=== PATIENT | female | born 1970 | race Hispanic/Latino ===

== ENCOUNTER 2019-08-19 15:38 | Emergency (ER) | payer SELFPAY ==
[~2019-08-19] VITALS: Ht 160 cm; Wt 68.0 kg
[2019-08-19 16:26] LABS: BASOPHILS # (AUTO) 0.1 (0.0-0.1); BASOPHILS % 0.8 % (0.0-1.0); EOSINOPHILS # (AUTO) 0.2 (0.0-0.4); EOSINOPHILS % 2.7 % (0.0-6.0); HEMATOCRIT 39.3 % (34.2-44.1); HEMOGLOBIN 12.9 g/dL (12.0-16.0); LYMPHOCYTES # (AUTO) 1.7 (1.0-3.2); LYMPHOCYTES % 26.1 % (18.0-39.1); MEAN CORPUSCULAR HEMOGLOBIN 28.5 pg (28-32); MEAN CORPUSCULAR HGB CONC 32.8 g/dL (31-35); MEAN CORPUSCULAR VOLUME 86.9 fL (81-99); MONOCYTES # (AUTO) 0.6 (0.2-0.8); MONOCYTES % 8.7 % (4.4-11.3); NEUTROPHILS % 60.6 % (38.7-80.0); PLATELET COUNT 359 x10e3/uL (140-360); RED BLOOD COUNT 4.52 x10e6/uL (3.6-5.1); RED CELL DISTRIBUTION WIDTH 12.9 % (11.7-14.4)
[2019-08-19] MEDS ORDERED: METOCLOPRAMIDE HCL 10 MG/2ML VIAL IV ONE (16:30)
[2019-08-19] MEDS ORDERED: DIPHENHYDRAMINE HCL INJ 50 MG/ML VIAL IV ONE (16:30)
[2019-08-19] MEDS ORDERED: ACETAMIN/BUTALBITAL/CAFFEINE TAB PO ONE (16:30)
--- NOTE | 2019-08-19 16:33 | Emergency Department Note ---
History of Present Illnes History of Present Illness Chief Complaint: Respiratory History of Present Illness This is a 49 year old female arrived to the ED with complaints of a headache. Patient states she is concerned that she may have an aneurysm as her mother has one. She admits to previously diagnosed with strep pharyngitis, has been treated and has been afebrile otherwise. Historian: Patient Arrival Mode: Car Onset (how long ago): week(s) Radiation: Reports non-radiation Onset quality: gradual Duration (how long): day(s) Timing of current episode: intermittent Progression: waxing and waning Relieving factors: none Exacerbating factors: none (MADYSON HARDING DO) Past Medical/Family History Physician Review I have reviewed the patient's past medical and family history. Any updates have been documented here. (MADYSON HARDING DO) Past Medical History Recent Fever: No Clinical Suspicion of Infectio: No New/Unexplained Change in Ment: No Past Medical History: Hypertension Past Surgical History: Other Surgery: TUMMY TUCK (MADYSON HARDING DO) Social History Smoking Cessation: Never Smoker Counseling Performed: No Alcohol Use: None Any Illegal Drug Use: No TB Exposure/Symptoms: No Physically hurt or threatened: No (MADYSON HARDING DO) Other Last Tetanus: OOD Any Pre-Existing Lines (PICC,: No Is patient up to date on immun: Yes Last Flu: UTD Last Pneumovax: OOD (MADYSON HARDING DO) Review of Systems Review of Systems Constitutional: Reports as per HPI EENTM: Reports no symptoms Cardiovascular: Reports no symptoms Respiratory: Reports no symptoms Gastrointestinal: Reports no symptoms Genitourinary: Reports no symptoms Musculoskeletal: Reports no symptoms Integumentary: Reports no symptoms Neurological: Reports no symptoms Psychological: Reports no symptoms Endocrine: Reports no symptoms Hematological/Lymphatic: Reports no symptoms (MADYSON HARDING DO) Physical Exam Related Data Allergies: Coded Allergies: No Known Allergies (Unverified , 08/19/19) Triage Vital Signs Vital Signs Date Time Temp Pulse Resp B/P (MAP) Pulse Ox O2 Delivery O2 Flow Rate FiO2 08/19/19 16:05 98.3 98 18 153/96 97 Vital signs reviewed: Yes (MADYSON HARDING DO) Physical Exam CONSTITUTIONAL Constitutional: Present well-developed, Present well-nourished HENT HENT: Present normocephalic, Present atraumatic, Present oropharynx clear/moist, Present nose normal HENT L/R: Present left ext ear normal, Present right ext ear normal EYES Eyes: Reports PERRL, Reports conjunctivae normal NECK Neck: Present ROM normal PULMONARY Pulmonary: Present effort normal, Present breath sounds normal CARDIOVASCULAR Cardiovascular: Present regular rhythm, Present heart sounds normal, Present capillary refill normal, Present normal rate GASTROINTESTINAL Abdominal: Present soft, Present nontender, Present bowel sounds normal GENITOURINARY Genitourinary: Present exam deferred SKIN Skin: Present warm, Present dry MUSCULOSKELETAL Musculoskeletal: Present ROM normal NEUROLOGICAL Neurological: Present alert, Present oriented x 3, Present no gross motor or sensory deficits PSYCHOLOGICAL Psychological: Present mood/affect normal, Present judgement normal (MADYSON HARDING, DO) Results Laboratory Laboratory Laboratory Tests Test 08/19/19 14:16 (MADYSON HARDING, DO) Laboratory Laboratory Tests Test 08/19/19 14:16 White Blood Count 6.56 x10e3/uL (4.8-10.8) Red Blood Count 4.52 x10e6/uL (3.6-5.1) Hemoglobin 12.9 g/dL (12.0-16.0) Hematocrit 39.3 % (34.2-44.1) Mean Corpuscular Volume 86.9 fL (81-99) Mean Corpuscular Hemoglobin 28.5 pg (28-32) Mean Corpuscular Hemoglobin Concent 32.8 g/dL (31-35) Red Cell Distribution Width 12.9 % (11.7-14.4) Platelet Count 359 x10e3/uL (140-360) Neutrophils (%) (Auto) 60.6 % (38.7-80.0) Lymphocytes (%) (Auto) 26.1 % (18.0-39.1) Monocytes (%) (Auto) 8.7 % (4.4-11.3) Eosinophils (%) (Auto) 2.7 % (0.0-6.0) Basophils (%) (Auto) 0.8 % (0.0-1.0) Neutrophils # (Auto) 4.0 (2.1-6.9) Lymphocytes # (Auto) 1.7 (1.0-3.2) Monocytes # (Auto) 0.6 (0.2-0.8) Eosinophils # (Auto) 0.2 (0.0-0.4) Basophils # (Auto) 0.1 (0.0-0.1) Absolute Immature Granulocyte (auto 0.07 x10e3/uL (0-0.1) Sodium Level 138 mmol/L (136-145) Potassium Level 3.9 mmol/L (3.5-5.1) Chloride Level 102 mmol/L (98-107) Carbon Dioxide Level 26 mmol/L (22-29) Anion Gap 13.9 mmol/L (8-16) Blood Urea Nitrogen 12 mg/dL (7-26) Creatinine 0.95 mg/dL (0.57-1.11) Estimat Glomerular Filtration Rate > 60 ML/MIN (60-) BUN/Creatinine Ratio 13 (6-25) Glucose Level 97 mg/dL (74-118) Calcium Level 9.4 mg/dL (8.4-10.2) Total Bilirubin 0.2 mg/dL (0.2-1.2) Aspartate Amino Transf (AST/SGOT) 54 IU/L (5-34) Alanine Aminotransferase (ALT/SGPT) 83 IU/L (0-55) Alkaline Phosphatase 103 IU/L (40-150) Creatine Kinase 45 IU/L (29-168) Creatine Kinase MB 0.50 ng/mL (0-5.0) Troponin I 0.008 ng/mL (0-0.300) Total Protein 7.7 g/dL (6.5-8.1) Albumin 3.6 g/dL (3.5-5.0) Globulin 4.1 g/dL (2.3-3.5) Albumin/Globulin Ratio 0.9 (0.8-2.0) Human Chorionic Gonadotropin, Qual Negative (NEGATIVE) Lab results reviewed: Yes (GABRIELLA VALLEJO DO) Imaging Imaging results reviewed: Yes Impressions [place] [id number] Patient Name: ARMEN HARO MR #: [id number] : 1970 Age/Sex: 49/F Req #: [id number] Adm Physician: Ordered by: MADYSON HARDING DO Report #: [id number] Location: ER Room/Bed: Procedure: [id number] CT/CTA BRAIN Exam Date: 08/19/19 Exam Time: 1830 REPORT STATUS: Draft History:Headache, stiffness in neck, throbbing in head, Comparison studies:None Technique: Axial images were obtained from the thoracic inlet. 3-D reconstructions and maximum intensity projection reformats were performed. Coronal and sagittal images reconstructed from the axial data. Intravenous contrast: 100 cc of Isovue 310. Dose modulation, iterative reconstruction, and/or weight based adjustment of the mA/kV was utilized to reduce the radiation dose to as low as reasonably achievable. 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 Percentage of stenosis will be based on the NASCET criteria Aortic arch and major vessels: Patent. No abnormalities. Common carotid arteries: Patent. No abnormalities. Right internal carotid artery: Patent. No abnormalities. Left internal carotid artery: Patent. No abnormalities. Patent bilateral MCAs and ACAs. Right vertebral artery: Patent. No abnormalities. Left vertebral artery: Patent. No abnormalities. Basilar artery: Patent. No abnormalities. Posterior cerebral arteries: Patent. No abnormalities. Anatomical variants: Acom: Patent . Pcoms: Patent and prominent on the right side. Number well visualized on the left. Vertebral arteries: Col-dominant IMPRESSION: Cervical CTA: 1. Normal cervical CTA Intracranial CTA: 1. Normal intracranial CTA 2. Incidentally noted left lateral cuneus cavernoma. Dictated By: GLENROY ABDI MD 41 COPY TO: ~ (GABRIELLA VALLEJO DO) Assessment & Plan Medical Decision Making MDM 9-year-old well-appearing female arrived to the ED with complaints of a headache and concerns of aneurysm. Patient describes the headache as intermittent associa rc photophobia, spoke to patient at length about differential diagnosis of her headache including but not limited to pseudotumor cerebri meningitis stroke and AVM or aneurysm. Signout given to Dr. Vallejo to follow-up CTA Brain and dispo (MADYSON HARDING DO) Assessment & Plan Final Impression: (1) Migraine aura, persistent (MADYSON HARDING DO) Final Impression: (1) Migraine aura, persistent (2) Strep pharyngitis (GABRIELLA VALLEJO DO) Depart Disposition: HOME, SELF-CARE Last Vital Signs Date Time Temp Pulse Resp B/P (MAP) Pulse Ox O2 Delivery O2 Flow Rate FiO2 08/19/19 16:05 98.3 98 18 153/96 97 (MADYSON HARDING DO) Medications in the ED Metoclopramide HCl 10 mg ONCE ONCE IV ; Start 08/19/19 at 16:30; Stop 08/19/19 at 16:31; Status UNV Diphenhydramine HCl 25 mg NOW ONCE IV ; Start 08/19/19 at 16:30; Stop 08/19/19 at 16:31; Status UNV Acetaminophen/ Butalbital/ Caffeine 1 ea ONCE ONCE PO ; Start 08/19/19 at 16:30; Stop 08/19/19 at 16:31; Status UNV (MADYSON HARDING DO) Medications in the ED Metoclopramide HCl 10 mg ONCE ONCE IV Last administered on 08/19/19at 16:49; Admin Dose 10 MG; Start 08/19/19 at 16:30; Stop 08/19/19 at 16:55; Status DC Diphenhydramine HCl 25 mg NOW ONCE IV Last administered on 08/19/19at 17:36; Admin Dose 25 MG; Start 08/19/19 at 16:30; Stop 08/19/19 at 16:55; Status DC Acetaminophen/ Butalbital/ Caffeine 1 ea ONCE ONCE PO Last administered on 08/19/19at 16:49; Admin Dose 1 EA; Start 08/19/19 at 16:30; Stop 08/19/19 at 16:55; Status DC Sodium Chloride 1,000 ml @ 999 mls/hr ONCE IV Last administered on 08/19/19at 16:49; Admin Dose 999 MLS/HR; Start 08/19/19 at 16:45; Stop 08/19/19 at 18:00; Status DC Sodium Chloride 100 ml @ ud STK-MED ONCE .ROUTE ; Start 08/19/19 at 19:16; Stop 08/19/19 at 19:10; Status DC Iopamidol 74,000 mg STK-MED ONCE INJ ; Start 08/19/19 at 19:16; Stop 08/19/19 at 19:10; Status DC Penicillin G Benzathine 1.2 mu ONCE STAT IM ; Start 08/19/19 at 20:00; Stop 08/19/19 at 20:05; Status DC (GABRIELLA VALLEJO DO) MADYSON HARDING DO Aug 19, 2019 16:33 GABRIELLA VALLEJO DO Aug 19, 2019 20:02
[2019-08-19] MEDS ORDERED: SODIUM CHLORIDE 0.9% 1000ML 1,000 ML IV SCH (16:45)
[2019-08-19 17:21] LABS: ALANINE AMINOTRANSFERASE 83 IU/L (0-55); ALBUMIN 3.6 g/dL (3.5-5.0); ALBUMIN/GLOBULIN RATIO 0.9 (0.8-2.0); ALKALINE PHOSPHATASE 103 IU/L (40-150); ANION GAP 13.9 mmol/L (8-16); BLOOD UREA NITROGEN 12 mg/dL (7-26); BUN/CREATININE RATIO 13 (6-25); CALCIUM 9.4 mg/dL (8.4-10.2); CARBON DIOXIDE 26 mmol/L (22-29); CHLORIDE 102 mmol/L (98-107); CREATINE KINASE 45 IU/L (29-168); CREATININE, SERUM 0.95 mg/dL (0.57-1.11); EST GLOMERULAR FILTRATION RATE > 60 ML/MIN (60-); GLUCOSE 97 mg/dL (74-118); POTASSIUM 3.9 mmol/L (3.5-5.1); SODIUM 138 mmol/L (136-145)
[2019-08-19] MEDS ORDERED: SODIUM CHLORIDE 0.9% 100 ML ONE (19:16)
[2019-08-19] MEDS ORDERED: IOPAMIDOL 370 MG/ML 200 ML INFUS..BTL INJ ONE (19:16)
--- NOTE | 2019-08-19 19:42 | Diagnostic Imaging Report ---
History:Headache, stiffness in neck, throbbing in head, Comparison studies:None Technique: Axial images were obtained from the thoracic inlet. 3-D reconstructions and maximum intensity projection reformats were performed. Coronal and sagittal images reconstructed from the axial data. Intravenous contrast: 100 cc of Isovue 310. Dose modulation, iterative reconstruction, and/or weight based adjustment of the mA/kV was utilized to reduce the radiation dose to as low as reasonably achievable. 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 Percentage of stenosis will be based on the NASCET criteria Aortic arch and major vessels: Patent. No abnormalities. Common carotid arteries: Patent. No abnormalities. Right internal carotid artery: Patent. No abnormalities. Left internal carotid artery: Patent. No abnormalities. Patent bilateral MCAs and ACAs. Right vertebral artery: Patent. No abnormalities. Left vertebral artery: Patent. No abnormalities. Basilar artery: Patent. No abnormalities. Posterior cerebral arteries: Patent. No abnormalities. Anatomical variants: Acom: Patent . Pcoms: Patent and prominent on the right side. Number well visualized on the left. Vertebral arteries: Col-dominant IMPRESSION: Cervical CTA: 1. Normal cervical CTA Intracranial CTA: 1. Normal intracranial CTA 2. Incidentally noted left lateral cuneus cavernoma, superimposed petechial blood is a possibility, no mass effect, midline shift or herniation. Recommend comparison with previous examinations and possible follow-up. The above finding was reported and acknowledged to the ER doctor at 10:50 PM 08/19/2019 Signed by: DR Esteban Drake M.D. on 08/19/2019 11:02 PM
[2019-08-19] MEDS ORDERED: PENICILLIN G BENZATHINE LA 1.2 MU TBX IM STA (20:00)
[2019-08-19 21:09] VITALS: BP 153/91
== END 2019-08-19 21:00 | disposition home or self-care (01) ==
LOC: ER 15:38
DX: G43.509 Persistent migraine aura without cerebral infarction, not intractable, without status migrainosus (principal); J02.0 Streptococcal pharyngitis; I10 Essential (primary) hypertension
CPT/HCPCS: 36415; 70496; 70498; 80053; 82550; 82553; 84484; 84702; 85025; 99284; J0561; J1200; J2765; J7030; J7050; Q9967